=== PATIENT | male | born 1945 | race Caucasian/White ===

== ENCOUNTER 2023-03-28 11:53 | Outpatient (CLI) | payer MEDICARE | END 2023-03-28 11:54 | disposition home or self-care (01) | LOC: CSHRAD 11:53 | PROVIDERS: ATTEND Internal Medicine Cardiovascular Disease | DX: I48.0 Paroxysmal atrial fibrillation (principal); Z79.899 Other long term (current) drug therapy | CPT/HCPCS: 71046 ==